=== PATIENT | male | born 1955 ===

== ENCOUNTER → 2021-12-04 09:30 | Outpatient (BNVA) | payer OTHER, SELFPAY | PROVIDERS: PCP Internal Medicine; Visit Provider Psychiatry & Neurology Neurology | DX: R56.9 Unspecified convulsions (principal) ==

== ENCOUNTER 2023-06-16 12:31 | Outpatient (AMB) | payer OTHER, MEDICAID, SELFPAY ==
--- NOTE | 2023-06-16 12:32 | A.OFFVIS_ITS ---
Intake Intake Visit Reasons: 1YR fu CVA/Dementia / [phone] Intake Note: Pt presents for telehealth visit for one year follow up dementia. 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: No Allergies bee venom protein (honey bee) Allergy (Mild, Verified 06/16/23 12:36) Swelling Medication List - Last Reconciled 06/16/23 by Lynne Mora MD acetaminophen ER 650 mg PO Q12H ammonium lactate 12% topical aspirin 81 mg PO DAILY atorvastatin 10 mg PO DAILY citalopram 40 mg PO DAILY donepezil 10 mg PO DAILY levetiracetam (Keppra) 500 mg PO BID melatonin 10 mg PO BEDTIME PRN pantoprazole 40 mg PO DAILY tamsulosin 0.4 mg PO DAILY HPI HPI Comments History of Present Illness Details 68y/o male with seizures , vascular dre ntia, h/o CVA with residual weakness calls for follow up after 1 year..No seizures since last visit but his cognition is worse. His first seizure was on 02/09/2021 followed by 2 more seizures. Please see my initial consultation for more detailed history. He is stable on keppra 500mg bid His cognition is worse. He has good days and bad days . He has trouble with days. He has trouble using TV remote. he has excessive daytime sleepiness, snoring. He rarely exercises. He uses a walker . He also has dysphagia- no episodes of choking. [facility] Medical History Vascular dementia Anxiety Depression Arthritis CKD (chronic kidney disease) Dysphagia Esophageal cancer Seizures CVA (cerebral vascular accident) Surgical History History of hip surgery Social History Household Members: Spouse Physical Exam Const Other: speech is ok but disoriented General: cooperative Orientation/consciousness: oriented to person Neuro General: oriented to person Assessment & Plan Assessment & Plan (1) Seizures: Code(s): R56.9 - Unspecified convulsions (2) Vascular dementia: Code(s): F01.50 - Vascular dementia, unspecified severity, without behavioral disturbance, psychotic disturbance, mood disturbance, and anxiety (3) CVA (cerebral vascular accident): Code(s): I63.9 - Cerebral infarction, unspecified (4) Hypersomnia: Code(s): G47.10 - Hypersomnia, unspecified Plan Continue keppra 500mg bid Donepezil 10 mg qd Namenda XR 7 mg qd Increase physical activity Home PT - patient is home bound due to his falls and dementia Orders: [facility]errals [facility] Referral F01.50 - Vascular dementia, unspecified severity, without behavioral disturbance, psychotic disturbance, mood disturbance, and anxiety, I63.9 - Cerebral infarction, unspecified Medications: New memantine 7 mg PO DAILY 30 ea 6RF Telehealth Telehealth Location of provider rendering services: practice address Location of patient: address on file Patient Identification confirmed using: Name, : Yes Telehealth method: voice only Patient verbally consented to treatment: Yes Patient verbally consented to billing insurance company: Yes Patient informed of any privacy concerns related to visit: Yes Coding Level of Care Code Tele Est Pt Level 4 (08206) Diagnoses Seizures R56.9 Vascular dementia F01.50 CVA (cerebral vascular accident) I63.9 Hypersomnia G47.10 Time Spent (min) 16
== END 2023-06-16 13:00 | disposition home or self-care (01) ==
LOC: HO.HSMS 12:31
PROVIDERS: PCP Internal Medicine; Visit Provider Psychiatry & Neurology Neurology
DX: R56.9 Unspecified convulsions (principal); F01.50 Vascular dementia, unspecified severity, without behavioral disturbance, psychotic disturbance, mood disturbance, and anxiety; I69.398 Other sequelae of cerebral infarction; G47.10 Hypersomnia, unspecified
CPT/HCPCS: 99442

== ENCOUNTER → 2023-06-16 12:31 | Outpatient (BNVA) | payer OTHER, MEDICAID, SELFPAY | PROVIDERS: PCP Internal Medicine; Visit Provider Psychiatry & Neurology Neurology | DX: I63.9 Cerebral infarction, unspecified (principal); F01.50 Vascular dementia, unspecified severity, without behavioral disturbance, psychotic disturbance, mood disturbance, and anxiety; G47.10 Hypersomnia, unspecified ==